=== PATIENT | female | born 1985 | race Two or more races ===

== ENCOUNTER 2023-06-13 22:55 | Emergency (ER) | payer SELFPAY ==
[~2023-06-13] VITALS: Ht 154.9 cm; Wt 86.3 kg
[2023-06-13 23:07] VITALS: BP 179/127; PULSE 112; RESP 18; O2SAT 98
== END 2023-06-14 04:45 | disposition left against medical advice (07) ==
LOC: ER 22:55
DX: T78.40XA Allergy, unspecified, initial encounter (principal); Z53.21 Procedure and treatment not carried out due to patient leaving prior to being seen by health care provider; X58.XXXA Exposure to other specified factors, initial encounter